=== PATIENT | male | born 1980 | race Caucasian/White ===

== ENCOUNTER → 2016-09-23 | Outpatient (CLI) | payer OTHER ==
--- NOTE | 2016-09-23 11:43 | CT ---
EXAMINATION TYPE: CT lower extremity LT wo con DATE OF EXAM: 09/23/2016 9:18 AM COMPARISON: NONE HISTORY: Non union left tibia shaft fracture CT DLP: 582.00 mGycm Automated exposure control for dose reduction was used. 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 Medullary ryan extends through the fractu re site with screws on either side. No new fractures are evident. Three-D reconstructed images are reviewed on the computer. Axial coronal and sagittal plane images ar e reviewed. IMPRESSION: NONUNION MID DIAPHYSEAL TIBIAL FRACTURE
== END | disposition home or self-care (01) ==
LOC: RADCTMAIN 08:36
PROVIDERS: ATTEND Orthopaedic Surgery
DX: S82.292K Other fracture of shaft of left tibia, subsequent encounter for closed fracture with nonunion (principal)